=== PATIENT | female | born 1960 | race African-American/Black ===

== ENCOUNTER 2016-04-18 13:10 | Emergency (ER) | payer OTHER, MEDICAID ==
[~2016-04-18] VITALS: Ht 167.6 cm; Wt 120.7 kg
[~2016-04-18 13:10] MED LIST: ALPR0.5T96 PO; BENA40TA2 PO; GLYB5TAB7 PO; HYDR25TA4 PO; METF-303 PO; PIOG30TA70 PO; TRAZ150T77 PO
[2016-04-18 13:15] VITALS: BP 145/91; PULSE 76; RESP 17; TEMP 97.2; O2SAT 90
--- NOTE | 2016-04-18 13:18 | NUR ---
Ambualtory to bed 7
--- NOTE | 2016-04-18 14:00 | NUR ---
MD SHELTON AT BEDSIDE.
--- NOTE | 2016-04-18 15:10 | NUR ---
Patient to ER C/O epigarstric pain 08/20 non-radiating, denies N/V/D/C. States it started yesterday. AAOx4, unlabored breathing, no signs of acute distress.
[2016-04-18 15:14] LABS: BILIRUBIN,URINE NEGATIVE (NEGATIVE); BLOOD, URINE 1+ (NEGATIVE); CLARITY/URINE CLOUDY (CLEAR); COLOR,URINE YELLOW (YELLOW); GLUCOSE,URINE NEGATIVE (NEGATIVE); KETONES,URINE NEGATIVE (NEGATIVE); LEUKOCYTE ESTERASE ,URINE NEGATIVE (NEGATIVE); NITRITE, URINE NEGATIVE (NEGATIVE); PROTEIN URINE 1+ (NEGATIVE); UROBILINOGEN,URINE 0.2 (0.2-1.0)
[2016-04-18 15:22] LABS: CALCIUM 9.1 mg/dL (8.4-11.0); CREATININE 0.54 mg/dL (0.55-1.30); POTASSIUM 3.7 mmol/L (3.5-5.1)
[2016-04-18 15:26] LABS: TOTAL BILIRUBIN 0.9 mg/dL (0.0-1.0); TOTAL PROTEIN, SERUM 7.6 g/dL (6.4-8.3)
[2016-04-18 15:36] LABS: BACTERIA,URINE MANY /HPF (None Seen); RBC,URINE NONE SEEN /HPF (0-3); WBC,URINE 0-3 /HPF (0-3)
[2016-04-18 15:37] LABS: MUCUS,URINE None Seen /LPF (None Seen); URINE AMORPHOUS URATE 3+ /HPF (None Seen)
[2016-04-18 16:36] LABS: BASOPHILS # (AUTO) 0.1 K/uL (0.0-0.2); BASOPHILS % (AUTO) 0.7 % (0.0-2.0); EOSINOPHILS # (AUTO) 0.2 K/uL (0.0-0.4); EOSINOPHILS % (AUTO) 2.1 % (0.0-4.0); HEMATOCRIT 41.3 % (36-48); HEMOGLOBIN 13.5 g/dL (12.0-16.0); LYMPHOCYTES # (AUTO) 2.9 K/uL (1.0-5.5); LYMPHOCYTES % (AUTO) 34.3 % (20.5-51.5); MEAN CORPUSCULAR HEMOGLOBIN 27 pg (27-31); MEAN CORPUSCULAR HGB CONC 33 % (32-36); MEAN CORPUSCULAR VOLUME 81 fL (79.0-98.0); MONOCYTES # (AUTO) 0.3 K/uL (0.0-1.0); MONOCYTES % (AUTO) 3.3 % (1.7-9.3); NEUTROPHILS # (AUTO) 4.9 K/uL (1.8-7.7); NEUTROPHILS % (AUTO) 59.6 % (40.0-70.0); PLATELET COUNT (AUTO) 422 K/uL (130-430); RED CELL DISTRIBUTION WIDTH 13.6 % (9.0-15.0); WHITE BLOOD COUNT (AUTO) 8.4 K/uL (4.8-10.8)
--- NOTE | 2016-04-18 16:42 | NUR ---
ER MD Dickerson to bedside discussing plan of care and discharge with the patient and family.
[2016-04-18 17:06] VITALS: BP 132/84; PULSE 74; RESP 16; TEMP 97.8; O2SAT 96
--- NOTE | 2016-04-18 17:06 | NUR ---
Patient given written and verbal discharge instructions and verbalizes understanding. ER MD Dickerson discussed with patient the results and treatment provided. Patient in stable condition. ID arm band removed. Rx of pepcid given. Patient educated on pain management and to follow up with PMD. Pain Scale 0/10. Opportunity for questions provided and answered.
== END 2016-04-18 17:06 | disposition home or self-care (01) ==
LOC: SED 13:10
DX: R10.13 Epigastric pain (principal); E11.9 Type 2 diabetes mellitus without complications; I10 Essential (primary) hypertension; E66.01 Morbid (severe) obesity due to excess calories
CPT/HCPCS: 36415; 76700-TC; 80053; 81000-TC; 83690-TC; 84484; 85025; 87086; 93005; 99285

== ENCOUNTER 2016-06-08 18:36 | Inpatient (IN) | payer OTHER, MEDICAID ==
[~2016-06-08] VITALS: Ht 167.6 cm; Wt 116.1 kg
[2016-06-08 18:36] VITALS: BP 164/97; PULSE 79; RESP 21; TEMP 97.9; O2SAT 100
--- NOTE | 2016-06-08 18:41 | NUR ---
Placed in room 01. Placed on pvc monitor, blood pressure machine and pulse oximeter. To gown for exam. Side rails up.
--- NOTE | 2016-06-08 18:57 | NUR ---
Dr. Maier at bedside for evaluation
--- NOTE | 2016-06-08 19:10 | NUR ---
Pt presents to ED with c/o left chest pain 10/, non-radiating, pt stated she had a clindamycin PO and afraid it might be stuck in her esophagus. Pt c/o sensation of a pill in the throat, A&Ox4, denies SOB, denies N/V/D. SKin intact, non-diaphoretic. will continue to monitor
[2016-06-08 19:18] LABS: CALCIUM 9.4 mg/dL (8.4-11.0); CREATININE 0.7 mg/dL (0.55-1.30); POTASSIUM 3.2 mmol/L (3.5-5.1)
[2016-06-08 19:22] LABS: ALBUMIN 4.1 g/dL (3.4-4.8); PROTHROMBIN TIME 10.7 SECS (9.5-12.5); TOTAL BILIRUBIN 0.6 mg/dL (0.0-1.0); TOTAL PROTEIN, SERUM 7.7 g/dL (6.4-8.3)
[2016-06-08 19:28] LABS: BASOPHILS % (AUTO) 0.6 % (0.0-2.0); EOSINOPHILS # (AUTO) 0.1 K/uL (0.0-0.4); EOSINOPHILS % (AUTO) 1.2 % (0.0-4.0); HEMATOCRIT 40.6 % (36-48); HEMOGLOBIN 13.3 g/dL (12.0-16.0); LYMPHOCYTES # (AUTO) 2.5 K/uL (1.0-5.5); LYMPHOCYTES % (AUTO) 33.5 % (20.5-51.5); MEAN CORPUSCULAR HEMOGLOBIN 26 pg (27-31); MEAN CORPUSCULAR HGB CONC 33 % (32-36); MEAN CORPUSCULAR VOLUME 80 fL (79.0-98.0); MONOCYTES # (AUTO) 0.4 K/uL (0.0-1.0); MONOCYTES % (AUTO) 5.7 % (1.7-9.3); NEUTROPHILS # (AUTO) 4.3 K/uL (1.8-7.7); PLATELET COUNT (AUTO) 423 K/uL (130-430); RED BLOOD CELL COUNT(AUTO) 5.06 MIL/uL (4.2-6.2); RED CELL DISTRIBUTION WIDTH 13.4 % (9.0-15.0); WHITE BLOOD COUNT (AUTO) 7.3 K/uL (4.8-10.8)
[2016-06-08] MEDS ORDERED: GLUCAGON,HUMAN RECOMBINANT 1 MG VIAL IVP ONE (19:30)
[2016-06-08] MEDS ORDERED: NITROGLYCERIN 0.4 MG TAB.SUBL SL ONE (19:30)
[2016-06-08 19:35] LABS: BILIRUBIN,URINE NEGATIVE (NEGATIVE); BLOOD, URINE 1+ (NEGATIVE); CLARITY/URINE CLEAR (CLEAR); COLOR,URINE YELLOW (YELLOW); GLUCOSE,URINE NEGATIVE (NEGATIVE); KETONES,URINE NEGATIVE (NEGATIVE); LEUKOCYTE ESTERASE ,URINE NEGATIVE (NEGATIVE); NITRITE, URINE NEGATIVE (NEGATIVE); PROTEIN URINE 1+ (NEGATIVE); UROBILINOGEN,URINE 0.2 (0.2-1.0)
[2016-06-08 19:44] LABS: BACTERIA,URINE FEW /HPF (None Seen); MUCUS,URINE None Seen /LPF (None Seen); RBC,URINE 0-3 /HPF (0-3); WBC,URINE 0-3 /HPF (0-3)
--- NOTE | 2016-06-08 19:50 | NUR ---
Pt stated chest pain is 5/10 after second dose of nitroglycerin SL. Pain is tolerable
--- NOTE | 2016-06-08 20:03 | NUR ---
MD wright at bedside examining pt
[2016-06-08] MEDS ORDERED: KCL 20 mEq in 100 mL (PREMIX) 100 ML IV ONE (20:15)
[2016-06-08] MEDS ORDERED: GASTROGRAFIN 120 ML ONE (20:20)
[2016-06-08] MEDS ORDERED: MORPHINE 4 MG/ML INJ. SYRINGE IVP ONE (21:30)
--- NOTE | 2016-06-08 21:30 | NUR ---
Medication reconciliation completed with information provided by pt. Any prior medication reconciliation on file was reviewed and corrected.
[2016-06-08] MEDS ORDERED: SITA1TAB9 PO (21:38)
[2016-06-08] MEDS ORDERED: GLIP-172 PO (21:38)
[2016-06-08] MEDS ORDERED: HYDR25TA4 PO (21:43)
[2016-06-08] MEDS ORDERED: METO-442 PO (21:43)
[2016-06-08] MEDS ORDERED: AMLO2.5T2 PO (21:43)
[2016-06-08] MEDS ORDERED: BENA40TA2 PO (21:43)
[2016-06-08] MEDS ORDERED: ASPI-1063 PO (21:43)
--- NOTE | 2016-06-08 22:22 | NUR ---
ADMISSION: The patient, GREGORY RED, 55 y/o, F admitted by PALMER GREGORY MD, was given written information regarding hospital policies, unit procedures and contact persons.
--- NOTE | 2016-06-08 22:25 | NUR ---
Patient will be admitted to care of . Admitted to med-surg unit. Will go to room 102B. Belongings list completed. Summary report printed. Report will be given at bedside to Toni EDDY
[2016-06-08 22:35] VITALS: BP 136/92; PULSE 79; RESP 18; TEMP 98.2; O2SAT 97
--- NOTE | 2016-06-08 22:58 | NUR ---
INITIAL NOTE PT. RECEIVED FROM ADMISSION NURSE, TEAGAN. PT. HAS NO S/S OF SOB OR DISTRESS AT THIS TIME. PT. STATES SHE IS BEGINNING TO HAVE SOME BREAKTHROUGH PAIN, WILL MEDICATE PT. ORDERED. IV ACCESS NOTED TO RIGHT FOREARM, NO REDNESS OR SWELLING TO THE SITE. PT. STATES SHE IS ABLE TO AMBULATE WITH STEADY GAIT, ENCOURAGED PT. TO CALL FOR ANY ASSISTANCE. WILL CONT. TO MONITOR THE PT. FOR ANY CHANGES. SAFETY AND FALL PRECAUTIONS IN PLACE, CALL LIGHT IN REACH.
[2016-06-09] MEDS ORDERED: INSULIN REGULAR, HUMAN 100 UNITS/ML, 10 ML VIAL (novoLIN R) SUBCUT PRN
[2016-06-09] MEDS ORDERED: ENALAPRILAT DIHYDRATE 1.25 MG/ML VIAL IVP PRN
[2016-06-09] MEDS ORDERED: ONDANSETRON HCL 4 MG/2 ML VIAL IVP PRN
[2016-06-09 00:04] VITALS: BP 136/92; PULSE 93; RESP 17; TEMP 97; O2SAT 94
--- NOTE | 2016-06-09 00:23 | NUR ---
ROUNDS DR. VALDEZ WAS AT THE BEDSIDE WITH THE PT, MAKING ROUNDS. ORDERS HAVE BEEN INPUT, WILL CARRY OUT. PT. IS IN STABLE CONDITION. CALL LIGHT IN REACH, BED IN LOWEST LOCKED POSITION.
[2016-06-09] MEDS: PANTOPRAZOLE SODIUM 40 MG/VIAL (PROTONIX) IVP SCH ×3 (01:22→21:17)
[2016-06-09] MEDS: KCL 10 mEq in D5/0.45NS 1000mL 1,000 ML IV SCH ×2 (01:22→14:00)
--- NOTE | 2016-06-09 01:46 | NUR ---
CONSULT: CONSULT CALLED FOR DR. GOULD I SPOKE WITH JUNI TURCIOS REASON FOR CONSULT:DYSPHAGIA CONSULT ENTERED BY DRApolinar GREGORY NUMBER I CALLED: [phone]
--- NOTE | 2016-06-09 02:17 | NUR ---
ROUNDS PT. RESTING IN BED WITH EYES CLOSED. CHEST RISE AND FALL NOTED. NO S/S OF SOB OR DISTRESS. NO FACIAL GRIMACING FOR PAIN. IV FLUIDS INFUSING WELL ORDERED. WILL CONT. TO MONITOR FOR CHANGES. SAFETY AND FALL PRECAUTIONS IN PLACE. CALL LIGHT IN REACH.
[2016-06-09 04:00] VITALS: BP 135/79; PULSE 81; RESP 16; TEMP 97.1; O2SAT 99
--- NOTE | 2016-06-09 04:10 | NUR ---
ROUNDS PT. RESTING IN BED WITH EYES CLOSED. CHEST RISE AND FALL NOTED. NO S/S OF SOB OR DISTRESS. NO FACIAL GRIMACING FOR PAIN. IV FLUIDS CONT. TO INFUSE WELL. CALL LIGHT IN REACH. WILL CONT. TO MONITOR.
--- NOTE | 2016-06-09 06:35 | NUR ---
CLOSING NOTE PT. RESTING QUIETLY IN BED. NO S/S OF SOB OR DISTRESS. DENIES PAIN AT THIS TIME. MORNING ACCU CHECK DONE, BS 122, WNL, NO COVERAGE NEEDED PER SLIDING SCALE. ALL NECESSARY NEEDS WERE MET THROUGHOUT THE SHIFT. SAFETY AND FALL PRECAUTIONS WERE MAINTAINED. WILL ENDORSE CARE TO AM NURSE. CALL LIGHT IN REACH, BED IN THE LOWEST LOCKED POSITION.
[2016-06-09 06:50] LABS: BASOPHILS % (AUTO) 0.6 % (0.0-2.0); EOSINOPHILS # (AUTO) 0.2 K/uL (0.0-0.4); HEMATOCRIT 35.8 % (36-48); HEMOGLOBIN 12.2 g/dL (12.0-16.0); LYMPHOCYTES # (AUTO) 2.9 K/uL (1.0-5.5); LYMPHOCYTES % (AUTO) 37.3 % (20.5-51.5); MEAN CORPUSCULAR HEMOGLOBIN 27 pg (27-31); MEAN CORPUSCULAR HGB CONC 34 % (32-36); MEAN CORPUSCULAR VOLUME 80 fL (79.0-98.0); MONOCYTES # (AUTO) 0.6 K/uL (0.0-1.0); MONOCYTES % (AUTO) 7.1 % (1.7-9.3); NEUTROPHILS # (AUTO) 4.1 K/uL (1.8-7.7); PLATELET COUNT (AUTO) 324 K/uL (130-430); RED BLOOD CELL COUNT(AUTO) 4.46 MIL/uL (4.2-6.2); RED CELL DISTRIBUTION WIDTH 13.4 % (9.0-15.0); WHITE BLOOD COUNT (AUTO) 7.8 K/uL (4.8-10.8)
[2016-06-09 07:14] LABS: CALCIUM 8.6 mg/dL (8.4-11.0); CREATININE 0.67 mg/dL (0.55-1.30); POTASSIUM 3.2 mmol/L (3.5-5.1)
[2016-06-09 07:58] VITALS: BP 131/86; PULSE 81; RESP 18; TEMP 96.6; O2SAT 97
--- NOTE | 2016-06-09 08:00 | NUR ---
opening notes, received patient in bed, patient is aaox4, no sob, no distress, denies pain. reminded patient she will continue to be npo as ordered and we are waiting for GI doctor to see her. vitals wnl. call light in reach, bed in low position. instructed to call for assistance and pain medication. will cont to monitor.
[2016-06-09] MEDS: MORPHINE 2 MG/ML INJ. SYRINGE IVP PRN ×3 (08:44→22:07)
--- NOTE | 2016-06-09 10:00 | NUR ---
ROUNDING NOTES, PATIENT IN BED, DENIES PAIN, NO SOB, PT ON HER CELL PHONE. CALL LIGHT IN REACH, BED IN LOW POSITION. RE EDUCATED ON HER DIET FOR LUNCH AND DINNER TODAY AND NPO AFTER MIDNIGHT TONIGHT.
[2016-06-09] MEDS ORDERED: POTASSIUM CHLORIDE 20 MEQ/PKT PACKET PO ONE (11:30)
--- NOTE | 2016-06-09 11:33 | NUR ---
DR GREGORY ROUNDING DR GREGORY WAS HERE AND MD REMINDED OF THE K-LEVEL OF 3.2 OF PT AND PROCEDURE IN AM.
--- NOTE | 2016-06-09 12:00 | NUR ---
ROUNDING NOTES PATIENT SITTING IN CHAIR, NO SOB, NO DISTRESS. TOLD PT THAT SHE WILL GET CLEAR LIQUID DIET ORDERED. CALL LIGHT IN REACH, BED LOW POSITION. WILL CONT TO MONITOR.
[2016-06-09 12:01] VITALS: BP 149/90; PULSE 80; RESP 18; TEMP 96.7; O2SAT 98
--- NOTE | 2016-06-09 14:00 | NUR ---
ROUNDING NOTES, PATIENT IN BED, NO SOB, NO DISTRESS, FAMILY AT BEDSIDE, PT AND FAMILIES' QUESTION ABOUT EGD PROCEDURE ANSWER AND THEY VERBALIZED UNDERSTANDING. SAFETY PRECAUTION IN PLACE. WILL CONT TO MONITOR.
[2016-06-09 14:06] VITALS: Ht 167.6 cm; Wt 116.1 kg
[2016-06-09 16:00] VITALS: BP 137/98; PULSE 74; RESP 16; TEMP 96.9; O2SAT 98
--- NOTE | 2016-06-09 16:05 | NUR ---
ROUNDING NOTE PATIENT IN BED, NO SOB, NO DISTRESS, RESTING COMFORTABLY WILL CONT TO MONITOR.
--- NOTE | 2016-06-09 18:20 | NUR ---
CLOSING NOTES, PT IN BED, DENIES PAIN, SPOUSE AT BEDSIDE. PT IS NOW EATING DINNER. CALL LIGHT IN REACH, BED IN LOW POSITION. PT SIGNED CONSENT FOR EGD IN AM. PT AND FAMILY EDUCATED RE PROCEDURE AND PREPARATION. CONSENT IN CHART. WILL CONTINUE TO MONITOR.
--- NOTE | 2016-06-09 19:20 | NUR ---
CHANGE OF SHIFT: pt. awake, alert ,oriented with at bedside. pt. feeling better after pain med given. IVF patent, denies any shortness of breath. instructed to call for nurse if help needed. schedule for EGD in am.
--- NOTE | 2016-06-09 22:16 | NUR ---
NOTES: schedule med given and pain med c/o upper mid chest pain. no nausea nor vomiting. instructed to be NPO after midnight for the schedule procedure in am and verbalized understanding. positioned self for comfort. asked to close door.
[2016-06-10 00:15] VITALS: BP 129/73; PULSE 83; RESP 18; TEMP 98; O2SAT 96
--- NOTE | 2016-06-10 00:15 | NUR ---
ROUNDS: pt. awakened for VS, does not want to be waken up for 0400 VS if she is sleeping per pt.kept NPO.
--- NOTE | 2016-06-10 02:00 | NUR ---
NOTES: pt. called and c/o pain on upper midchest/epigastric and medicated . IVF infusing. no shortness of breath. call light within reach.
[2016-06-10] MEDS: MORPHINE 2 MG/ML INJ. SYRINGE IVP PRN ×2 (02:11→11:33)
[2016-06-10] MEDS: KCL 10 mEq in D5/0.45NS 1000mL 1,000 ML IV SCH (02:12)
--- NOTE | 2016-06-10 06:15 | NUR ---
NOTES: pt. c/o pain and was about to medicate but IV site bent, unable to flush, will start another line.
[2016-06-10] MEDS: fentaNYL CITRATE/PF 100 MCG/2 ML AMP ONE ×4 (06:39→07:55)
[2016-06-10] MEDS: MIDAZOLAM HCL 5 MG/5 ML VIAL ONE ×6 (06:40→07:59)
[2016-06-10] MEDS ORDERED: SIMETHICONE 40 MG/0.6 ML ML ONE (06:44)
--- NOTE | 2016-06-10 06:45 | NUR ---
NOTES: ask SURJIT Mills to start but unsuccessful, tried on right hand with gauge 22.
--- NOTE | 2016-06-10 06:55 | NUR ---
Closing Notes Crystal from GI lab here, just waiting, pt. aware.
--- NOTE | 2016-06-10 07:15 | NUR ---
endorsed pt. to incoming shift with nurse Nancy pt. left for EGD.
[2016-06-10 07:19] LABS: CALCIUM 8.6 mg/dL (8.4-11.0); CREATININE 0.69 mg/dL (0.55-1.30); POTASSIUM 3.4 mmol/L (3.5-5.1)
[2016-06-10 07:26] LABS: PROTHROMBIN TIME 10.8 SECS (9.5-12.5)
--- NOTE | 2016-06-10 07:48 | NUR ---
initial note per report, pt was picked up for procedure, EGD, awaiting return. Family member in room awaiting return also.
[2016-06-10] MEDS ORDERED: SUCR1TAB78 PO (08:24)
[2016-06-10] MEDS ORDERED: PRO40 PO (08:24)
--- NOTE | 2016-06-10 08:35 | NUR ---
pt returned from gi lab, awake, alert and oriented x4, able to make needs known, iv fluids infusing, no s/s of distress or compliant of pain, vss, family member at bedside, will continue to monitor
[2016-06-10 08:39] VITALS: BP 129/84; PULSE 76; RESP 18; TEMP 97.2; O2SAT 97
[2016-06-10] MEDS: PANTOPRAZOLE SODIUM 40 MG/VIAL (PROTONIX) IVP SCH (08:48)
[2016-06-10] MEDS ORDERED: SUCRALFATE 1 GM TABLET PO SCH (09:00)
--- NOTE | 2016-06-10 10:17 | NUR ---
Paged Dr. Butler [phone] brian Tejada
--- NOTE | 2016-06-10 10:44 | NUR ---
2nd Page for Dr Luke Watkins [phone]
--- NOTE | 2016-06-10 10:45 | NUR ---
ROUNDS PT RESTING, AND DAUGHTER AT BEDSIDE, NO S/S OF DISTRESS, PT COMPLAINS OF THROAT HURTING EVEN WHEN SHE SWALLOWS HER SALIVA, MADE AWARE THAT PATIENT IS REQUESTING PRESCRIPTION FOR PAIN MEDICATION, MD STATES HE WILL COME BACK TO WRITE PRESCRIPTION FOR PATIENT
[2016-06-10 12:39] VITALS: BP 149/84; PULSE 78; RESP 17; TEMP 97.5; O2SAT 97
--- NOTE | 2016-06-10 12:45 | NUR ---
PATIENT REQUESTING IF SHE CAN BE DISCHARGED HOME AND RETURN TO [facility] MEDICATION PRESCRIPTION LATER IN EVENING, CHARGE NURSE ADRIANO MADE AWARE, PER CHARGE NURSE IT IS OK FOR PATIENT TO BE DISCHARGED AND RETURN LATER IN DAY FOR PRESCRIPTION, PT PHONE NUMBER [phone], [address] GREGORY HAS PRESCRIPTION AND IT IS READY FOR [facility]. PT VERBALIZED UNDERSTANDING, WILL FOLLOW UP
--- NOTE | 2016-06-10 15:48 | NUR ---
DR GREGORY IN, WROTE PRESCRIPTION FOR [facility], WILL CALL PATIENT TO COME AND RETRIEVE PRESCRIPTION.
--- NOTE | 2016-06-10 15:50 | NUR ---
PATIENT CALLED AT [phone] NUMBER SHE PROVIDED UPON DISCHARGE TO COME AND [facility] PRESCRIPTION.
--- NOTE | 2016-06-10 16:20 | NUR ---
PATIENTS , ROBERT COWAN, PICKED UP PRESCRIPTION
== END 2016-06-10 13:04 | disposition home or self-care (01) | DRG 392 ==
LOC: SED 18:36 → SMU 22:03
PROVIDERS: ADMIT Internal Medicine; ATTEND Internal Medicine
PROC: 0DB58ZX Excision of Esophagus, Via Natural or Artificial Opening Endoscopic, Diagnostic (ICD-10-PCS; 2016-06-10)
PROC: 0DB68ZX Excision of Stomach, Via Natural or Artificial Opening Endoscopic, Diagnostic (ICD-10-PCS; principal; 2016-06-10 07:30)
DX: K29.00 Acute gastritis without bleeding (principal); Z68.41 Body mass index [BMI] 40.0-44.9, adult; K20.9 Esophagitis, unspecified; K22.2 Esophageal obstruction; E11.9 Type 2 diabetes mellitus without complications; I10 Essential (primary) hypertension; E66.9 Obesity, unspecified; Z79.899 Other long term (current) drug therapy
CPT/HCPCS: 36415; 43239; 71010; 74220-TC; 80048; 80053; 81000-TC; 82550-TC; 82962; 84484; 85025; 85610-TC; 85730-TC; 87081; 88162; 88305; 88312; 88313; 93005; 96365; 96366; 96375; 99285; C9113; J1610; J1815; J2250; J2270; J2405; J3010; J3480; J7030; Q9963

== ENCOUNTER 2017-01-28 18:56 | Emergency (ER) | payer OTHER, MEDICAID ==
[~2017-01-28] VITALS: Ht 167.6 cm; Wt 114.8 kg
[~2017-01-28 18:56] MED LIST changes: -ALPR0.5T96 PO; +AMLO2.5T2 PO; +ASPI-1063 PO; +GLIP-172 PO; -GLYB5TAB7 PO; -METF-303 PO; +METO-442 PO; -PIOG30TA70 PO; +PRO40 PO; +SITA1TAB9 PO; +SUCR1TAB78 PO; -TRAZ150T77 PO
[2017-01-28 19:03] VITALS: BP_SYST 138
[2017-01-28] MEDS ORDERED: OXYCODONE/ACETAMINOPHEN *10*mg/325 mg TABLET PO ONE (20:15)
[2017-01-28] MEDS ORDERED: KETOROLAC TROMETHAMINE 60 MG/2 ML VIAL IM ONE (20:15)
[2017-01-28] MEDS ORDERED: HYDROmorphone 1 MG INJ. 1 MG/ML AMPUL IM ONE (21:00)
[2017-01-28 21:06] LABS: BASOPHILS % (AUTO) 0.6 % (0.0-2.0); EOSINOPHILS # (AUTO) 0.2 K/uL (0.0-0.4); EOSINOPHILS % (AUTO) 1.9 % (0.0-4.0); HEMATOCRIT 39.8 % (36-48); HEMOGLOBIN 12.8 g/dL (12.0-16.0); LYMPHOCYTES # (AUTO) 2.9 K/uL (1.0-5.5); LYMPHOCYTES % (AUTO) 35.5 % (20.5-51.5); MEAN CORPUSCULAR HEMOGLOBIN 27 pg (27-31); MEAN CORPUSCULAR HGB CONC 32 % (32-36); MEAN CORPUSCULAR VOLUME 83 fL (79.0-98.0); MONOCYTES # (AUTO) 0.4 K/uL (0.0-1.0); MONOCYTES % (AUTO) 4.9 % (1.7-9.3); NEUTROPHILS # (AUTO) 4.7 K/uL (1.8-7.7); NEUTROPHILS % (AUTO) 57.1 % (40.0-70.0); PLATELET COUNT (AUTO) 418 K/uL (130-430); RED CELL DISTRIBUTION WIDTH 13.2 % (9.0-15.0); WHITE BLOOD COUNT (AUTO) 8.2 K/uL (4.8-10.8)
[2017-01-28 21:14] LABS: CALCIUM 9.7 mg/dL (8.4-11.0); CREATININE 0.67 mg/dL (0.55-1.30); POTASSIUM 3.8 mmol/L (3.5-5.1)
[2017-01-28 21:18] LABS: TOTAL BILIRUBIN 0.4 mg/dL (0.0-1.0)
[2017-01-28 21:50] LABS: BILIRUBIN,URINE NEGATIVE (NEGATIVE); CLARITY/URINE HAZY (CLEAR); COLOR,URINE YELLOW (YELLOW); GLUCOSE,URINE NEGATIVE (NEGATIVE); KETONES,URINE TRACE (NEGATIVE); LEUKOCYTE ESTERASE ,URINE 3+ (NEGATIVE); NITRITE, URINE NEGATIVE (NEGATIVE); PROTEIN URINE TRACE (NEGATIVE); UROBILINOGEN,URINE 0.2 (0.2-1.0)
[2017-01-28 21:51] LABS: BLOOD, URINE TRACE (NEGATIVE)
[2017-01-28 22:02] LABS: BACTERIA,URINE MODERATE /HPF (None Seen); MUCUS,URINE 1+ /LPF (None Seen); WBC,URINE 80-100 /HPF (0-3)
[2017-01-28 22:37] VITALS: BP_SYST 138
== END 2017-01-28 22:37 | disposition home or self-care (01) ==
LOC: SED 18:56
DX: D25.9 Leiomyoma of uterus, unspecified (principal); N39.0 Urinary tract infection, site not specified; E11.9 Type 2 diabetes mellitus without complications; I10 Essential (primary) hypertension; Z98.51 Tubal ligation status; Z79.899 Other long term (current) drug therapy
CPT/HCPCS: 36415; 74176; 80053; 81000; 81025; 83615; 83690; 85025; 87086; 96372; 99285; J1170; J1885

== ENCOUNTER 2018-07-25 21:11 | Emergency (ER) | payer OTHER, MEDICAID ==
[~2018-07-25] VITALS: Ht 167.6 cm; Wt 114.8 kg
[~2018-07-25 21:11] MED LIST changes: -ASPI-1063 PO; +ASPI-1153 PO; -BENA40TA2 PO; +BENA40TA8 PO; -GLIP-172 PO; +GLIP10TA21 PO
[2018-07-25 21:22] VITALS: BP_SYST 160
[2018-07-25 21:44] LABS: BILIRUBIN,URINE NEGATIVE (NEGATIVE); CLARITY/URINE CLEAR (CLEAR); COLOR,URINE YELLOW (YELLOW); GLUCOSE,URINE NEGATIVE (NEGATIVE); KETONES,URINE NEGATIVE (NEGATIVE); NITRITE, URINE NEGATIVE (NEGATIVE); PH,URINE 5.5 (5.0-8.0); PROTEIN URINE NEGATIVE (NEGATIVE); UROBILINOGEN,URINE 0.2 (0.2-1.0)
[2018-07-25 21:51] LABS: BLOOD, URINE TRACE (NEGATIVE); LEUKOCYTE ESTERASE ,URINE TRACE (NEGATIVE)
[2018-07-25 21:52] LABS: BACTERIA,URINE FEW /HPF (None Seen); MUCUS,URINE None Seen /LPF (None Seen); RBC,URINE NONE SEEN /HPF (0-3)
[2018-07-25] MEDS ORDERED: ONDANSETRON 4 MG ODT TAB PO ONE (22:00)
[2018-07-25] MEDS ORDERED: MORPHINE 4 MG/ML INJ. SYRINGE IM ONE (22:00)
[2018-07-25 22:08] LABS: BASOPHILS # (AUTO) 0.1 K/uL (0.0-0.2); BASOPHILS % (AUTO) 0.9 % (0.0-2.0); EOSINOPHILS # (AUTO) 0.1 K/uL (0.0-0.4); EOSINOPHILS % (AUTO) 1.7 % (0.0-4.0); HEMATOCRIT 37.5 % (36-48); HEMOGLOBIN 12.8 g/dL (12.0-16.0); LYMPHOCYTES # (AUTO) 2.6 K/uL (1.0-5.5); LYMPHOCYTES % (AUTO) 30.5 % (20.5-51.5); MEAN CORPUSCULAR HEMOGLOBIN 28 pg (27-31); MEAN CORPUSCULAR HGB CONC 34 % (32-36); MEAN CORPUSCULAR VOLUME 81 fL (79.0-98.0); MONOCYTES # (AUTO) 0.5 K/uL (0.0-1.0); MONOCYTES % (AUTO) 5.8 % (1.7-9.3); NEUTROPHILS # (AUTO) 5.1 K/uL (1.8-7.7); NEUTROPHILS % (AUTO) 61.1 % (40.0-70.0); PLATELET COUNT (AUTO) 410 K/uL (130-430); RED BLOOD CELL COUNT(AUTO) 4.64 MIL/uL (4.2-6.2); RED CELL DISTRIBUTION WIDTH 14.2 % (9.0-15.0); WHITE BLOOD COUNT (AUTO) 8.4 K/uL (4.8-10.8)
[2018-07-25 22:17] LABS: CALCIUM 9.4 mg/dL (8.4-11.0); CREATININE 0.81 mg/dL (0.55-1.30); POTASSIUM 3.3 mmol/L (3.5-5.1)
[2018-07-25 22:25] LABS: ALBUMIN 3.6 g/dL (3.4-4.8); TOTAL BILIRUBIN 0.4 mg/dL (0.0-1.0)
[2018-07-26 00:46] VITALS: BP_SYST 148
== END 2018-07-26 00:46 | disposition home or self-care (01) ==
LOC: SED 21:11
DX: N39.0 Urinary tract infection, site not specified (principal); E11.9 Type 2 diabetes mellitus without complications; I10 Essential (primary) hypertension; Z90.89 Acquired absence of other organs; Z90.710 Acquired absence of both cervix and uterus; Z79.82 Long term (current) use of aspirin; Z79.899 Other long term (current) drug therapy
CPT/HCPCS: 36415; 80053; 81000; 83690; 85025; 96372; 99283; J2270; Q0162

== ENCOUNTER 2019-02-08 18:50 | Emergency (ER) | payer OTHER, MEDICAID ==
[~2019-02-08] VITALS: Ht 167.6 cm; Wt 120.2 kg
[2019-02-08 18:55] VITALS: BP_SYST 151
--- NOTE | 2019-02-08 18:55 | NUR ---
Pt wheeled to bed 3
[2019-02-08] MEDS ORDERED: NACL 0.9% 1,000 ML IV ONE (19:09)
--- NOTE | 2019-02-08 19:10 | NUR ---
ER Dr. Alston at bedside examining patient.
[2019-02-08] MEDS ORDERED: methylPREDNISolone SOD SUCC/PF 62.5 MG/ML VIAL IVP ONE (19:15)
[2019-02-08] MEDS ORDERED: ONDANSETRON HCL 4 MG/2 ML VIAL IVP ONE ×2 (19:15→21:15)
[2019-02-08] MEDS ORDERED: KETOROLAC TROMETHAMINE 30 MG VIAL IVP ONE (19:15)
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
[2019-02-08] MEDS ORDERED: LORazepam 2 MG/ML VIAL IVP ONE (19:30)
[2019-02-08] MEDS ORDERED: DIPHENHYDRAMINE INJ 50 MG/ML VIAL IVP ONE (19:30)
[2019-02-08 20:00] LABS: BASOPHILS # (AUTO) 0.1 K/uL (0.0-0.2); BASOPHILS % (AUTO) 0.6 % (0.0-2.0); EOSINOPHILS # (AUTO) 0.2 K/uL (0.0-0.4); EOSINOPHILS % (AUTO) 1.2 % (0.0-4.0); HEMATOCRIT 37.3 % (36-48); HEMOGLOBIN 12.4 g/dL (12.0-16.0); LYMPHOCYTES # (AUTO) 2.5 K/uL (1.0-5.5); LYMPHOCYTES % (AUTO) 19.3 % (20.5-51.5); MEAN CORPUSCULAR HEMOGLOBIN 28 pg (27-31); MEAN CORPUSCULAR HGB CONC 33 % (32-36); MEAN CORPUSCULAR VOLUME 83 fL (79.0-98.0); MONOCYTES # (AUTO) 0.5 K/uL (0.0-1.0); MONOCYTES % (AUTO) 4.3 % (1.7-9.3); NEUTROPHILS # (AUTO) 9.5 K/uL (1.8-7.7); NEUTROPHILS % (AUTO) 74.6 % (40.0-70.0); PLATELET COUNT (AUTO) 414 K/uL (130-430); RED BLOOD CELL COUNT(AUTO) 4.52 MIL/uL (4.2-6.2); RED CELL DISTRIBUTION WIDTH 13.7 % (9.0-15.0); WHITE BLOOD COUNT (AUTO) 12.8 K/uL (4.8-10.8)
[2019-02-08 20:10] LABS: ANION GAP 10 (5-15); CALCIUM 8.6 mg/dL (8.4-11.0); CHLORIDE 102 mmol/L (98-107); CREATININE 0.57 mg/dL (0.55-1.30); GLUCOSE 160 mg/dL (70-99); POTASSIUM 3.3 mmol/L (3.5-5.1); SODIUM SERUM 137 mmol/L (136-145); UREA NITROGEN, BLOOD 13 mg/dL (8-21)
--- NOTE | 2019-02-08 20:10 | NUR ---
# 20 gauge angiocath placed to Left AC. Use of asceptic technique. Opsite placed over site. Blood return noted. Flushed with 10 cc of normal saline. No evidence of infiltration noted. Patient tolerated well.
[2019-02-08 20:14] LABS: GFR AFRICAN AMERICAN 141 mL/min (>90)
[2019-02-08 20:17] LABS: ALANINE AMINOTRANSFERASE 62 U/L (12-78); ALBUMIN 3.6 g/dL (3.4-4.8); AMYLASE 99 U/L (0-100); ASPARTATE AMINOTRANSFERASE 34 U/L (10-37); INR 0.9 (0.8-1.2); LIPASE 118 U/L (73-393); PROTHROMBIN TIME 9.3 SECS (9.5-12.5); TOTAL BILIRUBIN 0.7 mg/dL (0.0-1.0)
[2019-02-08 20:39] LABS: ACETAMINOPHEN < 1 ug/mL (1-30); ALCOHOL, BLOOD < 3 mg/dL (<10)
[2019-02-08] MEDS ORDERED: MORPHINE 4 MG/ML INJ. SYRINGE IVP ONE (21:15)
--- NOTE | 2019-02-08 21:46 | NUR ---
lab at bedside.
--- NOTE | 2019-02-08 21:50 | NUR ---
Urine collected. Urine dipped and sent to lab.
--- NOTE | 2019-02-08 22:06 | NUR ---
Patient resting quietly with at bedside. No acute distress noted. Vital signs within normal range. Will continue to monitor.
[2019-02-08] MEDS ORDERED: POTASSIUM CHLORIDE 20 MEQ TAB.PRT.SR PO ONE (22:15)
[2019-02-08 22:18] LABS: BILIRUBIN,URINE NEGATIVE (NEGATIVE); BLOOD, URINE NEGATIVE (NEGATIVE); CLARITY/URINE CLEAR (CLEAR); COLOR,URINE YELLOW (YELLOW); GLUCOSE,URINE NEGATIVE (NEGATIVE); KETONES,URINE NEGATIVE (NEGATIVE); LEUKOCYTE ESTERASE ,URINE NEGATIVE (NEGATIVE); NITRITE, URINE NEGATIVE (NEGATIVE); PROTEIN URINE NEGATIVE (NEGATIVE); UROBILINOGEN,URINE 0.2 (0.2-1.0)
[2019-02-08 22:35] LABS: BARBITURATE, URINE NEGATIVE (NEG <=200)
[2019-02-08 22:36] LABS: BENZODIAZEPINE, URINE POSITIVE (NEG <=150); CANNABINOID, URINE NEGATIVE (NEG <=50); COCAINE, URINE NEGATIVE (NEG <=150); METHAMPHETAMINES SCREEN,URINE NEGATIVE (NEG <=500); OPIATE, URINE POSITIVE (NEG <=100); PHENCYCLIDINE SCREEN,URINE NEGATIVE (NEG <=25); UR TRICYCLIC ANTIDEPRESSANTS NEGATIVE (NEG <=300); URINE AMPHETAMINE NEGATIVE (NEG <=500); URINE METHADONE NEGATIVE (NEG <=200); URINE OXYCODONE SCREEN NEGATIVE (NEG <=100); URINE PROPOXYPHENE SCREEN NEGATIVE (NEG <=300)
[2019-02-08 22:46] VITALS: BP_SYST 149
--- NOTE | 2019-02-08 22:46 | NUR ---
Patient given written and verbal discharge instructions and verbalizes understanding. ER MD Cantu discussed with patient the results and treatment provided. Patient in stable condition. ID arm band removed. IV catheter removed intact and dressing applied, no active bleeding. Rx of percocet given. Patient educated on pain management and to follow up with PMD. Pain Scale 0/10. Opportunity for questions provided and answered. Medication side effect fact sheet provided.
== END 2019-02-08 22:46 | disposition home or self-care (01) ==
LOC: SED 18:50
DX: S30.1XXA Contusion of abdominal wall, initial encounter (principal); S20.219A Contusion of unspecified front wall of thorax, initial encounter; R10.9 Unspecified abdominal pain; E11.9 Type 2 diabetes mellitus without complications; I10 Essential (primary) hypertension; Z79.899 Other long term (current) drug therapy; Z79.82 Long term (current) use of aspirin; V43.52XA Car driver injured in collision with other type car in traffic accident, initial encounter; Y92.413 State road as the place of occurrence of the external cause; Y93.89 Activity, other specified; Y99.8 Other external cause status
CPT/HCPCS: 36415; 71045; 80053; 80307; 81003; 82150; 82550; 83605; 83690; 84484; 85025; 85610; 85730; 87040; 93005; 96374; 96375; 96376; 99284; G0480; G0481; G0482; J1200; J1885; J2060; J2270; J2405; J2930; J7030